=== PATIENT | male | born 1985 | race Caucasian/White ===

== ENCOUNTER 2021-05-21 18:01 | Emergency (ER) | payer OTHER ==
[2021-05-21 18:22] VITALS: TEMP 99; BMI 37.6
[2021-05-21] MEDS ORDERED: METOCLOPRAMIDE HCL INJECTION 10 MG/2 ML VIAL IVPUSH ONE (20:39)
[2021-05-21] MEDS ORDERED: metoPROLOL SUCCINATE 25 MG TAB.SR.24H (FP) PO ONE (20:39)
[2021-05-21] MEDS ORDERED: SODIUM CHLORIDE 0.9% 500 ML INFUS.BAG IV ONE (20:39)
[2021-05-21] MEDS ORDERED: METOPROLOL TARTRATE 5 MG/5 ML VIAL IVPUSH ONE (20:40)
[2021-05-21 20:46] LABS: BASO % 0.5 % (0-2.0); HEMATOCRIT 44.2 % (35.4-49); HEMOGLOBIN 14.7 GM/dL (11.7-16.9); LYMPH % 43.6 % (8-40); MCH 29.6 pg (25.7-33.7); MCHC 33.2 g/dl (32.0-35.9); MEAN CELL VOLUME 89.1 fl (80-96); MEAN PLT VOLUME 7.1 fl (7.5-11.1); MONO % 8.8 % (3.8-10.2); NEUT % 46.1 % (42.8-82.8); PLATELET COUNT 308 10^3/uL (134-434); RBC 4.96 M/mm3 (4.00-5.60); WHITE BLOOD COUNT 6.6 K/mm3 (4.0-10.0)
[2021-05-21 20:54] LABS: INR 1.09 (0.83-1.09); PROTHROMBIN TIME (PATIENT) 12.5 SEC (9.7-13.0)
[2021-05-21] MEDS ORDERED: metoPROLOL SUCCINATE 25 MG TAB.SR.24H (FP) ONE (20:54)
[2021-05-21] MEDS ORDERED: METOPROLOL TARTRATE 5 MG/5 ML VIAL ONE (20:55)
[2021-05-21 20:57] LABS: ACTIVATED PTT 35.6 SECONDS (25.2-36.5)
[2021-05-21 21:02] LABS: CALCIUM 9.1 mg/dL (8.5-10.1)
[2021-05-21 21:03] LABS: ALBUMIN 3.9 g/dl (3.4-5.0); BLOOD UREA NITROGEN 18.1 mg/dL (7-18)
[2021-05-21 21:07] LABS: BILIRUBIN,TOTAL 0.4 mg/dL (0.2-1)
[2021-05-21 21:08] LABS: TOT PROT 7.5 g/dl (6.4-8.2)
[2021-05-22 00:03] VITALS: BP 131/99; PULSE 98
== END 2021-05-22 00:10 | disposition home or self-care (01) ==
LOC: JER 18:01
PROC: 3E033GC Introduction of Other Therapeutic Substance into Peripheral Vein, Percutaneous Approach (ICD-10-PCS; principal; 2021-05-21)
DX: R00.2 Palpitations (principal); I48.91 Unspecified atrial fibrillation
CPT/HCPCS: 36415; 71046-TC-FY; 80053; 82550; 82553; 84443; 84484; 85025; 85610; 85730; 93005; 93010; 99291

== ENCOUNTER 2022-05-12 08:45 | Emergency (ER) | payer OTHER ==
[2022-05-12 08:57] VITALS: BP 132/84; PULSE 92; RESP 20; TEMP 98.4; BMI 37.6
[2022-05-12] MEDS ORDERED: LIDOCAINE 5% TOPICAL PATCH TP ONE (09:39)
[2022-05-12] MEDS ORDERED: KETOROLAC TROMETHAMINE 15 MG/ML VIAL IM ONE (09:39)
[2022-05-12] MEDS ORDERED: KETOROLAC TROMETHAMINE 30 MG/1 ML VIAL ONE (09:43)
[2022-05-12] MEDS ORDERED: LIDOCAINE 5% TOPICAL PATCH ONE (09:43)
[2022-05-12] MEDS ORDERED: LIDOCAINE PATCH REMOVAL MC SCH (22:00)
== END 2022-05-12 11:44 | disposition home or self-care (01) ==
LOC: JER 08:45
PROC: 3E023GC Introduction of Other Therapeutic Substance into Muscle, Percutaneous Approach (ICD-10-PCS; principal; 2022-05-12)
DX: M79.601 Pain in right arm (principal)
CPT/HCPCS: 71046-TC-FY; 73030-TC-RT-FY; 99284-25